=== PATIENT | male | born 1960 | race Caucasian/White ===

== ENCOUNTER 2016-10-08 09:49 | Emergency (ER) | payer BC ==
[~2016-10-08] VITALS: Ht 180.3 cm; Wt 96.4 kg
[~2016-10-08 09:49] MED LIST: FISH OIL + VIT1 EACH PO; HAIR, SKIN & N1 EAC1 PO; PROTONIX40 MG PO; TESTOSTERONE5 GM TD; TRAMADOL HCL50 MG PO; ZOFRAN4 MG PO
[2016-10-08] MEDS ORDERED: TEARS NATURALE30 ML BOTH EYES (10:56)
[2016-10-08] MEDS ORDERED: VALTREX1000 MG PO (10:56)
[2016-10-08] MEDS ORDERED: NAPROSYN500 MG PO (10:56)
[2016-10-08 11:04] VITALS: BP 171/96
== END 2016-10-08 11:04 | disposition home or self-care (01) ==
LOC: RME 09:49 → EME 09:49 → RME 11:04
DX: G51.0 Bell's palsy (principal); Z87.891 Personal history of nicotine dependence
CPT/HCPCS: 80053; 85025; 99281; 99283